=== PATIENT | male | born 1965 | race American Indian/Alaskan Native ===

== ENCOUNTER 2020-04-08 18:35 | Observation (INO) | payer OTHER ==
--- NOTE | 2020-04-08 18:57 | Emergency Department Report ---
ED Neuro Deficit HPI - General Stated Complaint: STROKE - History of Present Illness Initial Comments: [facility] Tele[facility]rology Consult [facility] Date of Service: 04/08/2020 18:28:48 Impression: R42 - Dizziness/ Vertigo/ Giddiness R29.810 - Facial numbness/ Facial weakness Comments/Sign-Out: acute onset dizziness/vertigo - concerning for brainstem/cerebellar infarct vs peripheral vertigo. Recommend admission for stroke workup. Metrics: Last Known Well: 04/07/2020 13:00:00 [employer] Notification Time: 04/08/2020 18:28:24 Arrival Time: 04/08/2020 18:35:00 Stamp Time: 04/08/2020 18:28:48 Time First Login Attempt: 04/08/2020 18:36:04 Video Start Time: 04/08/2020 18:36:04 Symptoms: dizziness; slurred speech. NIHSS Start Assessment Time: 04/08/2020 18:45:00 Patient is not a candidate for Alteplase/Activase. Patient was not deemed candidate for Alteplase/Activase thrombolytics because of Last Well Known Above 4.5 Hours. Video End Time: 04/08/2020 18:54:36 CT head showed no acute hemorrhage or acute core infarct. CT head was reviewed. ED Physician notified of diagnostic impression and management plan on 04/08/2020 18:54:36 Our recommendations are outlined below. Recommendations: Activate Stroke Protocol Admission/Order Set Stroke/Telemetry Floor Neuro Checks Bedside Swallow Eval DVT Prophylaxis IV Fluids, Normal Saline Head of Bed 30 Degrees Euglycemia and Avoid Hyperthermia (PRN Acetaminophen) start ASA if CT head is neg for hemorrhage. Routine Consultation with Inhouse Neurology for Follow up Care Sign Out: Discussed with Emergency Department Provider History of Present Illness: Patient is a 54 year old Male. Patient was brought by EMS for symptoms of dizziness; slurred speech. 54 yo man was home with his family that had acute onset dizziness starting at approx 1300 yesterday. He had a spell of unresponsiveness while sitting in a chair, which was accompanied by generalized convulsion. His family helped him to the ground, and he regained consciousness. He developed slurred speech, and family noted right facial droop. Past Medical History: Hypertension Diabetes Mellitus There is NO history of Hyperlipidemia There is NO history of Atrial Fibrillation There is NO history of Coronary Artery Disease There is NO history of Stroke Anticoagulant use: No Antiplatelet use: No Examination: BP(174/96), Pulse(94), Blood Glucose(240) 1A: Level of Consciousness - Alert; keenly responsive + 0 1B: Ask Month and Age - 1 Question Right + 1 1C: Blink Eyes & Squeeze Hands - Performs Both Tasks + 0 2: Test Horizontal Extraocular Movements - Normal + 0 3: Test Visual Aparicio - No Visual Loss + 0 4: Test Facial Palsy (Use Grimace if Obtunded) - Minor paralysis (flat nasolabial fold, smile asymmetry) + 1 5A: Test Left Arm Motor Drift - No Drift for 10 Seconds + 0 5B: Test Right Arm Motor Drift - No Drift for 10 Seconds + 0 6A: Test Left Leg Motor Drift - No Drift for 5 Seconds + 0 6B: Test Right Leg Motor Drift - No Drift for 5 Seconds + 0 7: Test Limb Ataxia (FNF/Heel-Castañeda) - No Ataxia + 0 8: Test Sensation - Normal; No sensory loss + 0 9: Test Language/Aphasia - Normal; No aphasia + 0 10: Test Dysarthria - Normal + 0 11: Test Extinction/Inattention - No abnormality + 0 NIHSS Score: 2 Pre-Morbid Modified Ranking Scale: 0 Points = No symptoms at all Patient/Family was informed the Neurology Consult would happen via TeleHealth consult by way of interactive audio and video telecommunications and consented to receiving care in this manner. Due to the immediate potential for life-threatening deterioration due to underlying acute neurologic illness, I spent 20 minutes providing critical care. This time includes time for face to face visit via telemedicine, review of medical records, imaging studies and discussion of findings with providers, the patient and/or family. Dr Duy Ackerman [facility] Case [id number] - Related Data Allergies/Adverse Reactions: Allergies Allergy/AdvReac Type Severity Reaction Status Date / Time No Known Allergies Allergy Unverified 04/08/20 18:37 ED Review of Systems ROS: Stated complaint: STROKE Other details as noted in HPI ED Neuro Physical Exam - General Suspected Stroke: Yes - NIHSS Assessment Interval: Baseline 1a. Level of Consciousness: alert/keenly responsive 1b. LOC Questions: answers both correctly 1c. LOC Commands: performs tasks correctly 2. Best Gaze: normal 3. Visual: no visual loss 4. Facial Palsy: minor paralysis 5b. Motor Arm Right: no drift 5a. Motor Arm Left: no drift 6a. Motor Leg Left: no drift 6b. Motor Leg Right: no drift 7. Limb Ataxia: absent 8. Sensory: normal 9. Best Language: no aphasia 10. Dysarthria: normal 11. Extinction/Inattention: no abnormality Total Score: 1 Stroke Severity: Minor Stroke Critical care attestation.: If time is entered above; I have spent that time in minutes in the direct care of this critically ill patient, excluding procedure time. ED Disposition Clinical Impression: Dizziness Disposition: DC-09 OP ADMIT IP TO THIS HOSP Is pt being admited?: Yes Condition: Stable
--- NOTE | 2020-04-08 19:02 | Emergency Department Report ---
ED Neuro Deficit HPI - General Stated Complaint: STROKE Time Seen by Provider: 04/08/20 18:55 - History of Present Illness Initial Comments: Patient is a 54-year-old Af [place]ian male who is presenting with some facial droop and difficulty speaking. Patient has a past medical history of diabetes and hypertension patient originally stated that he was fine for taking a nap approximately hour prior to his arrival but in speaking with the neurologist recreation aide he now states that some of his symptoms started yesterday. Patient states that his left arm feels "weird". States he has normal strength but he just has a numb sensation in that arm. He has some slight facial droop on the right. Definitely states he is not speaking normally at this time. He denies any chest pain shortness of breath fevers chills. - Related Data Allergies/Adverse Reactions: Allergies Allergy/AdvReac Type Severity Reaction Status Date / Time No Known Allergies Allergy Unverified 04/08/20 18:37 ED Review of Systems ROS: Stated complaint: STROKE Other details as noted in HPI Comment: All other systems reviewed and negative ED Neuro Physical Exam - General General appearance: alert, in no apparent distress Suspected Stroke: Yes - Head Head exam: Present: atraumatic, normocephalic - Eye Eye exam: Present: normal appearance, PERRL, EOMI - ENT ENT exam: Present: normal orophraynx, mucous membranes moist - Neck Neck exam: Present: normal inspection - Respiratory Respiratory exam: Present: normal lung sounds bilaterally. Absent: respiratory distress, wheezes, rales, rhonchi - Cardiovascular Cardiovascular Exam: Present: regular rate, normal rhythm, normal heart sounds. Absent: systolic murmur, diastolic murmur, rubs, gallop - GI/Abdominal GI/Abdominal exam: Present: soft, normal bowel sounds. Absent: distended, tenderness, guarding, rebound - Rectal Rectal exam: Present: deferred - Extremities Exam Extremities exam: Present: normal inspection - Back Exam Back exam: Present: normal inspection - Neurological Exam Neurological exam: Present: alert, oriented X3, motor sensory deficit. Absent: CN II-XII intact - NIHSS Assessment Interval: Baseline 1a. Level of Consciousness: alert/keenly responsive 1b. LOC Questions: answers both correctly 1c. LOC Commands: performs tasks correctly 2. Best Gaze: normal 3. Visual: no visual loss 4. Facial Palsy: minor paralysis 5b. Motor Arm Right: no drift 5a. Motor Arm Left: no drift 6a. Motor Leg Left: no drift 6b. Motor Leg Right: no drift 7. Limb Ataxia: absent 8. Sensory: mild/moderate sensory loss 9. Best Language: mild/moderate aphasia 10. Dysarthria: mild/moderate dysarthria 11. Extinction/Inattention: no abnormality Total Score: 4 Stroke Severity: Minor Stroke - Psychiatric Psychiatric exam: Present: normal affect, normal mood - Skin Skin exam: Present: warm, dry, intact, normal color. Absent: rash ED Course Vital Signs 04/08/20 18:49 Temperature 98 F Pulse Rate 74 Respiratory 20 Rate Blood Pressure 174/90 O2 Sat by Pulse 97 Oximetry - Lab Data Result diagrams: 04/08/20 18:48 04/08/20 18:48 Lab Results 04/08/20 04/08/20 04/08/20 Range/Units 18:48 18:48 18:48 WBC 7.4 (4.5-11.0) K/mm3 RBC 3.90 (3.65-5.03) M/mm3 Hgb 11.6 L (11.8-15.2) gm/dl Hct 35.5 (35.5-45.6) % MCV 91 (84-94) fl MCH 30 (28-32) pg MCHC 33 (32-34) % RDW 12.9 L (13.2-15.2) % Plt Count 217 (140-440) K/mm3 Lymph % (Auto) 21.3 (13.4-35.0) % [place] % (Auto) 6.2 (0.0-7.3) % Eos % (Auto) 1.2 (0.0-4.3) % Baso % (Auto) 0.8 (0.0-1.8) % Lymph # (Auto) 1.6 (1.2-5.4) K/mm3 [place] # (Auto) 0.5 (0.0-0.8) K/mm3 Eos # (Auto) 0.1 (0.0-0.4) K/mm3 Baso # (Auto) 0.1 (0.0-0.1) K/mm3 Seg Neutrophils % 70.5 H (40.0-70.0) % Seg Neutrophils # 5.2 (1.8-7.7) K/mm3 PT 13.5 (12.2-14.9) Sec. INR 1.04 (0.87-1.13) APTT 23.2 L (24.2-36.6) Sec. Thrombin Time (15.1-19.6) Sec. Sodium 133 L (137-145) mmol/L Potassium 4.4 (3.6-5.0) mmol/L Chloride 100.2 (98-107) mmol/L Carbon Dioxide 19 L (22-30) mmol/L Anion Gap 18 mmol/L BUN 33 H (9-20) mg/dL Creatinine 2.1 H (0.8-1.3) mg/dL Estimated GFR 40 ml/min BUN/Creatinine Ratio 16 % Glucose 198 H (75-100) mg/dL POC Glucose (70-105) mg/dL Calcium 8.8 (8.4-10.2) mg/dL Troponin T < 0.010 (0.00-0.029) ng/mL Plasma/Serum Alcohol (0-0.07) % 04/08/20 04/08/20 04/08/20 Range/Units 18:48 19:12 19:44 WBC (4.5-11.0) K/mm3 RBC (3.65-5.03) M/mm3 Hgb (11.8-15.2) gm/dl Hct (35.5-45.6) % MCV (84-94) fl MCH (28-32) pg MCHC (32-34) % RDW (13.2-15.2) % Plt Count (140-440) K/mm3 Lymph % (Auto) (13.4-35.0) % [place] % (Auto) (0.0-7.3) % Eos % (Auto) (0.0-4.3) % Baso % (Auto) (0.0-1.8) % Lymph # (Auto) (1.2-5.4) K/mm3 [place] # (Auto) (0.0-0.8) K/mm3 Eos # (Auto) (0.0-0.4) K/mm3 Baso # (Auto) (0.0-0.1) K/mm3 Seg Neutrophils % (40.0-70.0) % Seg Neutrophils # (1.8-7.7) K/mm3 PT (12.2-14.9) Sec. INR (0.87-1.13) APTT (24.2-36.6) Sec. Thrombin Time 15.3 (15.1-19.6) Sec. Sodium (137-145) mmol/L Potassium (3.6-5.0) mmol/L Chloride (98-107) mmol/L Carbon Dioxide (22-30) mmol/L Anion Gap mmol/L BUN (9-20) mg/dL Creatinine (0.8-1.3) mg/dL Estimated GFR ml/min BUN/Creatinine Ratio % Glucose (75-100) mg/dL POC Glucose 155 H (70-105) mg/dL Calcium (8.4-10.2) mg/dL Troponin T (0.00-0.029) ng/mL Plasma/Serum Alcohol < 0.01 (0-0.07) % - Radiology Data [facility] [address] [place] [address] Cat Scan Report Signed Patient: SHEBA MÉNDEZ MR#: [id number] : 1965 Acct:[id number] Age/Sex: 54 / M ADM Date: 04/08/20 Loc: ED Attending Dr: Ordering Physician: THOR SHARMA MD Date of Service: 04/08/20 Procedure(s): CT head/brain wo con Accession Number(s): [id number] cc: THOR SHARMA MD NONENHANCED CT SCAN OF THE HEAD: INDICATION / CLINICAL INFORMATION: 54 years Male; MAIN. TECHNIQUE: Routine CT head without contrast. All CT scans at this location are performed using CT dose reduction for ALARA by means of automated exposure control. COMPARISON: None. FINDINGS: BRAIN / INTRACRANIAL CONTENTS: No acute hemorrhage, mass effect, midline shift, hydrocephalus, or acute, large territorial infarct. Increased CT attenuation in the left caudate head and globus pallidus; right caudate head and thalami normal; Compared to the right side, increased CT attenuation in the left middle cerebral artery territory. It is difficult to explain these findings. 2 considerations are acute infarction in left basal ganglia with petechial changes and second consideration is loss of autoregulation resulting in increased attenuation in the left basal ganglia and left middle cerebral artery territory. Focal area of increased CT attenuation in one of the pericallosal arteries; middle cerebral arteries and branches of the middle cerebral artery in the sylvian fissure are normal mild cortical involution CRANIOCERVICAL JUNCTION: No significant abnormality. ORBITS: No significant abnormality of visualized orbits. SINUSES / MASTOIDS: No significant abnormality of the visualized paranasal sinuses or mastoid air cells. ADDITIONAL FINDINGS: None. IMPRESSION: No intracerebral hemorrhage Increased CT attenuation in the head of the left caudate and left globus pallidus along with suggestion of increased CT attenuation in the left middle cerebral artery territory compared to the right side; no CT findings to suggest acute territorial infarction; 2 considerations are acute infarction in the left basal ganglia with petechial changes and a second consideration is loss of autoregulation resulting in increased CT attenuation in the left basal ganglia and left middle cerebral artery territory Please obtain MRI scan of the brain and MRA of the brain CODE STROKE: Time of Communication (AIRFIELD SERVICES OFFICER/CDT): 6:15 PM Central standard time Licensed Practitioner Receiving Report: ER Physician Signer Name: Gladis García MD Signed: 04/08/2020 7:26 PM Workstation Name: [id number] - Medical Decision Making Our neurologists had a NIH score of 1. My assessment just 5 minutes after his assessment shows a NIH H score of 4. Patient has very subtle dysphagia aphasia. Patient is outside of the window for TPA and both our neurologist and radiologist suggest that the patient obtain MRI for further details. He does have some hyperattenuation in the left basal ganglia. Patient to be admitted to our hospitalist service at this time. Was given aspirin. Critical care attestation.: If time is entered above; I have spent that time in minutes in the direct care of this critically ill patient, excluding procedure time. ED Disposition Clinical Impression: Dizziness, CVA (cerebral vascular accident), Hypertensive urgency, malignant, Renal insufficiency Disposition: OP ADMIT IP TO THIS HOSP Is pt being admited?: Yes Does the pt Need Aspirin: No Condition: Stable Time of Disposition: 19:49
[2020-04-08 19:05] LABS: Basophils # (Auto) 0.1 K/mm3 (0.0-0.1); Basophils % (Auto) 0.8 % (0.0-1.8); Eosinophils # (Auto) 0.1 K/mm3 (0.0-0.4); Eosinophils % (Auto) 1.2 % (0.0-4.3); Hematocrit 35.5 % (35.5-45.6); Hemoglobin 11.6 gm/dl (11.8-15.2); Lymphocytes # (Auto) 1.6 K/mm3 (1.2-5.4); Lymphocytes % (Auto) 21.3 % (13.4-35.0); Mean Corpuscular HGB Conc 33 % (32-34); Mean Corpuscular Volume 91 fl (84-94); Monocytes # (Auto) 0.5 K/mm3 (0.0-0.8); Monocytes % (Auto) 6.2 % (0.0-7.3); Platelet Count 217 K/mm3 (140-440); Red Cell Distribution Width 12.9 % (13.2-15.2)
[2020-04-08 19:18] LABS: BUN/Creatinine Ratio 16; Blood Urea Nitrogen 33 mg/dL (9-20); Calcium 8.8 mg/dL (8.4-10.2); Hemolysis Index 21; INR 1.04 (0.87-1.13); Partial Thromboplastin Time 23.2 Sec. (24.2-36.6)
--- NOTE | 2020-04-08 19:31 | Cat Scan Report ---
NONENHANCED CT SCAN OF THE HEAD: INDICATION / CLINICAL INFORMATION: 54 years Male; MAIN. TECHNIQUE: Routine CT head without contrast. All CT scans at this location are performed using CT dos e reduction for ALARA by means of automated exposure control. COMPARISON: None. FINDINGS: BRAIN / INTRACRANIAL CONTENTS: No acute hemorrhage, mass effect, midline shift, hydrocephalus, or acu te, large territorial infarct. Increased CT attenuation in the left caudate head and globus pallidus; right caudate head and thala mi normal; Compared to the right side, increased CT attenuation in the left middle cerebral artery te rritory. It is difficult to explain these findings. 2 considerations are acute infarction in left bas al ganglia with petechial changes and second consideration is loss of autoregulation resulting in in creased attenuation in the left basal ganglia and left middle cerebral artery territory. Focal area of increased CT attenuation in one of the pericallosal arteries; middle cerebral arteries and branches of the middle cerebral artery in the sylvian fissure are normal mild cortical involution CRANIOCERVICAL JUNCTION: No significant abnormality. ORBITS: No significant abnormality of visualized orbits. SINUSES / MASTOIDS: No significant abnormality of the visualized paranasal sinuses or mastoid air indira ls. ADDITIONAL FINDINGS: None. IMPRESSION: No intracerebral hemorrhage Increased CT attenuation in the head of the left caudate and left globus pallidus along with suggest ion of increased CT attenuation in the left middle cerebral artery territory compared to the right s chris; no CT findings to suggest acute territorial infarction; 2 considerations are acute infarction in the left basal ganglia with petechial changes and a second consideration is loss of autoregulation r esulting in increased CT attenuation in the left basal ganglia and left middle cerebral artery territ ory Please obtain MRI scan of the brain and MRA of the brain CODE STROKE: Time of Communication (TOOL TURRET LATHE SET UP OPERATOR/CDT): 6:15 PM Central standard time Licensed Practitioner Receiving Report: ER Physician Signer Name: Gladis García MD Signed: 04/08/2020 7:26 PM Workstation Name: [id number]
[2020-04-08] MEDS ORDERED: METOPROLOL TARTRATE 50 MG TAB PO ONE (19:46)
[2020-04-08] MEDS ORDERED: ASPIRIN 325 MG TAB PO ONE (19:46)
[2020-04-08 20:09] LABS: Amphetamine Screen,Urine Negative; Benzodiazepines Screen,Urine Negative; Cannabinoid Screen,Urine Negative; Cocaine Screen,Urine Negative; Methadone Screen,Urine Negative; Opiate Screen,Urine Negative
[2020-04-09] MEDS ORDERED: DEXTROSE 50% IN WATER (25GM) 50 ML SYRINGE IV PRN (03:03)
[2020-04-09] MEDS ORDERED: SODIUM CHLORIDE 0.9% 1000 ML 1,000 ML IV SCH (03:15)
[2020-04-09] MEDS: INSULIN REGULAR, HUMAN 100 UNIT/ML 3ML VIAL SUB-Q SCH ×4 (06:36→21:38)
[2020-04-09 06:37] LABS: Calcium 8.5 mg/dL (8.4-10.2)
--- NOTE | 2020-04-09 08:01 | History and Physical Report ---
History of Present Illness Date of examination: 03/10/20 Date of admission: 04/08/20 22:18 Chief complaint: fACIAL DROOP, SPEECH IMPAIRMENT AND LEFT ARM NUMBNESS History of present illness: 54 year old male who developed symptom of droopin of right side of mouth, speech impairment and numbness of the left arm. Symptoms started the day before presentation . patient denied history of pain in any part of the body , shortness of breath and or fever, there is no history of nausea or vomiting and patient described the left arm feeling as heavy and weird. Past History Past Medical History: diabetes, hypertension Past Surgical History: No surgical history Social history: no significant social history Medications and Allergies Allergies Allergy/AdvReac Type Severity Reaction Status Date / Time No Known Allergies Allergy Verified 04/09/20 03:04 Active Meds: Active Medications Dextrose (D50w (25gm) Syringe) 50 ml IV Q30MIN PRN; Protocol PRN Reason: Hypoglycemia Sodium Chloride (Nacl 0.9% 1000 Ml) 1,000 mls @ 100 mls/hr IV DIRECT JAMEY Last Admin: 04/09/20 04:00 Dose: 100 mls/hr Documented by: Insulin Human Regular (Humulin R) 0 unit SUB-Q Q4HR JAMEY; Protocol Last Admin: 04/09/20 06:36 Dose: Not Given Documented by: Review of Systems Constitutional: no fever, no chills, no sweats, no fatigue, no weakness Eyes: bilateral: other (No Bilateral Eye symptom) Ears, nose, mouth and throat: no ear pain Cardiovascular: no chest pain, no orthopnea, no palpitations, no rapid/irregular heart beat, no syncope, no lightheadedness, no shortness of breath Respiratory: no cough, no excessive sputum, no hemoptysis, no shortness of breath, no dyspnea on exertion Gastrointestinal: no nausea, no vomiting Genitourinary Male: no hematuria Rectal: no pain Musculoskeletal: arm numbness/tingling, other (LEFT ARM HEAVYNESS), no neck stiffness, no neck pain, no shooting arm pain, no low back pain, no shooting leg pain, no leg numbness/tingling Integumentary: no rash, no pruritis, no redness, no sores, no wounds Neurological: numbness, change in speech, no head injury, no paralysis, no weakness, no parathesias, no tingling, no seizures, no syncope, no tremors, no ataxia, no lack of coordination, no vertigo, no headaches, no convulsions, no aphasia, no change in mentation, no confusion, no memory loss Psychiatric: no anxiety, no insomnia Endocrine: no polyphagia, no polydipsia, no polyuria, no nocturia, no excessive sweating Hematologic/Lymphatic: no easy bruising, no easy bleeding, no lymphadenopathy Allergic/Immunologic: no urticaria Exam - Constitutional Vitals: Temp Pulse Resp BP Pulse Ox 98.4 F 65 20 153/83 99 04/09/20 02:55 04/09/20 04:00 04/09/20 02:55 04/09/20 02:55 04/09/20 02:55 General appearance: Present: mild distress - EENT Eyes: Absent: PERRL, EOM intact ENT: no hearing intact, no clear oral mucosa, no dentition normal - Neck Neck: Absent: supple, normal ROM - Respiratory Respiratory effort: normal - Cardiovascular Heart Sounds: Present: S1 & S2. Absent: gallop, systolic murmur, rub, click - Extremities Extremities: no ischemia, No edema Peripheral Pulses: within normal limits - Abdominal General gastrointestinal: Present: soft, non-tender, non-distended. Absent: tender, distended, rigid, hepatomegaly, splenomegaly Male genitourinary: Present: deferred - Rectal Rectal Exam: deferred - Integumentary Integumentary: Present: clear, warm, dry. Absent: jaundice - Musculoskeletal Musculoskeletal: strength equal bilaterally - Psychiatric Psychiatric: appropriate mood/affect HEART Score - HEART Score Risk factors: 1-2 risk factors Troponin: Troponin T < 0.010 ng/mL (0.00-0.029) 04/08/20 18:48 Troponin: < normal limit - Critical Actions Critical Actions: 0-3 pts:0.9-1.7%risk of adverse cardiac event.Candidate for discharge Results - Labs CBC & Chem 7: 04/08/20 18:48 04/09/20 05:14 Labs: Laboratory Last Values WBC 7.4 K/mm3 (4.5-11.0) 04/08/20 18:48 RBC 3.90 M/mm3 (3.65-5.03) 04/08/20 18:48 Hgb 11.6 gm/dl (11.8-15.2) L 04/08/20 18:48 Hct 35.5 % (35.5-45.6) 04/08/20 18:48 MCV 91 fl (84-94) 04/08/20 18:48 MCH 30 pg (28-32) 04/08/20 18:48 MCHC 33 % (32-34) 04/08/20 18:48 RDW 12.9 % (13.2-15.2) L 04/08/20 18:48 Plt Count 217 K/mm3 (140-440) 04/08/20 18:48 Lymph % (Auto) 21.3 % (13.4-35.0) 04/08/20 18:48 [place] % (Auto) 6.2 % (0.0-7.3) 04/08/20 18:48 Eos % (Auto) 1.2 % (0.0-4.3) 04/08/20 18:48 Baso % (Auto) 0.8 % (0.0-1.8) 04/08/20 18:48 Lymph # (Auto) 1.6 K/mm3 (1.2-5.4) 04/08/20 18:48 [place] # (Auto) 0.5 K/mm3 (0.0-0.8) 04/08/20 18:48 Eos # (Auto) 0.1 K/mm3 (0.0-0.4) 04/08/20 18:48 Baso # (Auto) 0.1 K/mm3 (0.0-0.1) 04/08/20 18:48 Seg Neutrophils % 70.5 % (40.0-70.0) H 04/08/20 18:48 Seg Neutrophils # 5.2 K/mm3 (1.8-7.7) 04/08/20 18:48 PT 13.5 Sec. (12.2-14.9) 04/08/20 18:48 INR 1.04 (0.87-1.13) 04/08/20 18:48 APTT 23.2 Sec. (24.2-36.6) L 04/08/20 18:48 Thrombin Time 15.3 Sec. (15.1-19.6) 04/08/20 18:48 Sodium 133 mmol/L (137-145) L 04/09/20 05:14 Potassium 4.4 mmol/L (3.6-5.0) 04/09/20 05:14 Chloride 100.9 mmol/L (98-107) 04/09/20 05:14 Carbon Dioxide 22 mmol/L (22-30) 04/09/20 05:14 Anion Gap 15 mmol/L 04/09/20 05:14 BUN 29 mg/dL (9-20) H 04/09/20 05:14 Creatinine 1.7 mg/dL (0.8-1.3) H 04/09/20 05:14 Estimated GFR 51 ml/min 04/09/20 05:14 BUN/Creatinine Ratio 17 % 04/09/20 05:14 Glucose 256 mg/dL (75-100) H 04/09/20 05:14 POC Glucose 249 mg/dL (70-105) H 04/09/20 07:50 Calcium 8.5 mg/dL (8.4-10.2) 04/09/20 05:14 Troponin T < 0.010 ng/mL (0.00-0.029) 04/08/20 18:48 Urine Opiates Screen Negative 04/08/20 19:55 Urine Methadone Screen Negative 04/08/20 19:55 Ur Barbiturates Screen Negative 04/08/20 19:55 Ur Phencyclidine Scrn Negative 04/08/20 19:55 Ur Amphetamines Screen Negative 04/08/20 19:55 U Benzodiazepines Scrn Negative 04/08/20 19:55 Urine Cocaine Screen Negative 04/08/20 19:55 U Marijuana (THC) Screen Negative 04/08/20 19:55 Drugs of Abuse Note Disclamer 04/08/20 19:55 Plasma/Serum Alcohol < 0.01 % (0-0.07) 04/08/20 19:12 Galvin/IV: Voiding Method Toilet IV Catheter Type [Right Peripheral IV Antecubital] Assessment and Plan - Patient Problems (1) Diabetes mellitus Current Visit: Yes Status: Acute Plan to address problem: 1. ACCU CHECKS AND INSULIN SLIDING SCALE COVERAGE (2) CVA (cerebral vascular accident) Current Visit: Yes Status: Acute Plan to address problem: 1. NEUROLOGY CONSULT FOR EVALUATION AND POSSIBLE MRI BRAIN 2. 2 D ECHOCARDIOGRAM 3. BILATERAL CAROTID DOPPLER 4. NPO UNTIL SWALLOW TEST PASSED 5. PHYSICAL THERAPY CONSULT 6. SPEECH THERAPY CONSULT 7. ASPIRIN PO 8. ATORVASTATIN PO (3) Renal insufficiency Current Visit: Yes Status: Acute Plan to address problem: 1. I.V NORMAL SALINE FLUID 2. NEPHROLOGY CONSULT
[2020-04-09] MEDS ORDERED: hydroCHLOROthiazide 12.5 MG CAP PO SCH (11:00)
--- NOTE | 2020-04-09 11:04 | Discharge Summary ---
Providers - Providers Date of Admission: 04/08/20 22:18 Attending physician: JEF JOVEL MD 04/08/20 23:31 Physical Therapy Evaluation and Treat [CONS] Routine Comment: Reason For Exam: CVA 04/09/20 06:00 Consult to Physician [CONS] Routine Comment: Consulting Provider: EZEQUIEL PHILLIPS Physician Instructions: Reason For Exam: NALDO Speech Therapy Evaluation and Treat [CONS] Routine Reason For Exam: CVA WITH SPEECH IMPAIRMENT 04/09/20 06:27 Consult to Physician [CONS] Routine Comment: Consulting Provider: SVETLANA HASTINGS Physician Instructions: Reason For Exam: CVA [facility] Hospital[facility] Condition: Stable Hospital course: Clinically improved, lower ext discoloration secondary to mahoney well healed Facial droop resolved Was not on aspirin at home CT negative Disposition: DC-01 TO HOME OR SELFCARE Time spent for discharge: 35 mins Core Measure Documentation - Palliative Care Palliative Care/ Comfort Measures: Not Applicable Exam - Constitutional Vitals: Temp Pulse Resp BP Pulse Ox 98.6 F 63 20 159/91 96 04/09/20 07:52 04/09/20 07:52 04/09/20 07:52 04/09/20 07:52 04/09/20 07:52 Plan Activity: advance as tolerated, fall precautions Diet: low fat Special Instructions: record daily weights, record daily BP diary, physical therapy, occupational therapy [facility] - [facility] Days Prescriptions: AtorvaSTATin [Lipitor] 40 mg PO QHS #30 tablet amLODIPine 2.5 mg PO QDAY #30 tablet Aspirin [Aspirin BABY CHEW TAB] 81 mg PO QDAY #30 tab.chew
--- NOTE | 2020-04-09 11:11 | Consultation ---
History of Present Illness - Reason for Consult Consult date: 04/09/20 acute renal failure - History of Present Illness 54 year old male was admitted for left sided weakness. had some SOB on admission and generalized pain, was noted to have abnormal creatinine and renal consult was requested, he was started on IVF on admission. when seen he stated he is feeling much better and requesting to go home Past History Past Medical History: diabetes, hypertension Past Surgical History: No surgical history Social history: no significant social history Medications and Allergies Allergies Allergy/AdvReac Type Severity Reaction Status Date / Time No Known Allergies Allergy Verified 04/09/20 03:04 Home Medications Medication Instructions Recorded Confirmed Last Taken Type Aspirin [Aspirin BABY CHEW TAB] 81 mg PO QDAY #30 tab.chew 04/09/20 Unknown Rx AtorvaSTATin [Lipitor] 40 mg PO QHS #30 tablet 04/09/20 Unknown Rx amLODIPine 2.5 mg PO QDAY #30 tablet 04/09/20 Unknown Rx Active Meds: Active Medications Amlodipine Besylate (Amlodipine) 2.5 mg PO QDAY JAMEY Aspirin (Baby Aspirin) 81 mg PO QDAY JAMEY Atorvastatin Calcium (Lipitor) 80 mg PO QHS JAMEY Dextrose (D50w (25gm) Syringe) 50 ml IV Q30MIN PRN; Protocol PRN Reason: Hypoglycemia Sodium Chloride (Nacl 0.9% 1000 Ml) 1,000 mls @ 75 mls/hr IV DIRECT JAMEY Insulin Human Regular (Humulin R) 0 unit SUB-Q Q4HR [facility]; Protocol Last Admin: 04/09/20 06:36 Dose: Not Given Documented by: Review of Systems All systems: negative (weakness) Exam - Vital Signs Vital signs: Vital Signs Temp Pulse Resp BP Pulse Ox 98 F 74 20 174/90 97 04/08/20 18:49 04/08/20 18:49 04/08/20 18:49 04/08/20 18:49 04/08/20 18:49 - General Appearance General appearance: well-developed, well-nourished, appears stated age EENT: ATNC, PERRL, mucous membranes moist Neck: Present: neck supple Respiratory: Clear to Ascultation Heart: regular, S1S2 Gastrointestinal: Present: normoactive bowel sounds. Absent: tenderness, distended Integumentary: no rash, warm and dry Neurologic: no focal deficit, no asterixis, alert and oriented x3 Musculoskeletal: Present: other (no edema in BLE) Psychiatric: mood/affect appropriate, cooperative Results - Lab Results 04/08/20 18:48 04/09/20 05:14 Most recent lab results Calcium 8.5 mg/dL (8.4-10.2) 04/09/20 05:14 Assessment and Plan acute renal failure, likely prerenal, no baseline creatinine available CVA HTN D DM type II creatinine is trending down with IVF will [facility] urine studies will check renal US renally dose meds strict I&O daily weights Harmeet daigle MD [phone]
--- NOTE | 2020-04-09 12:07 | Vascular Lab Report ---
BILATERAL CAROTID DOPPLER ULTRASOUND INDICATION : CVA TECHNIQUE: Grayscale and color Doppler imaging performed through the neck. COMPARISON: None FINDINGS: Right: There is minimal noncalcified plaque in the carotid bulb. Peak systolic velocity in the CCA is 68 cm/s with end-diastolic velocity of 20 cm/s. Peak systolic velocity in the proximal ICA is 83 c m/s with end-diastolic velocity of 26 cm/s. ICA to CCA ratio is less than 2. There is antegrade flow in the ECA and the vertebral artery. Left: There is minimal noncalcified plaque in the carotid bulb. Peak systolic velocity in the CCA is 91 cm/s with end-diastolic velocity of 21 cm/s. Peak systolic velocity in the proximal ICA is 107 cm/ s with end-diastolic velocity of 27 cm/s. ICA to CCA ratio is less than 2. There is antegrade flow i n the ECA and the vertebral artery. IMPRESSION: No hemodynamically significant stenosis by NASCET criteria. Doppler velocities indicate l ess than 50% luminal narrowing bilaterally. Signer Name: Souleymane Shahid Jr, MD Signed: 04/09/2020 12:02 PM Workstation Name: [id number]
--- NOTE | 2020-04-09 12:39 | Ultrasound Report ---
ULTRASOUND RENAL INDICATION / CLINICAL INFORMATION: renal failure. COMPARISON: None FINDINGS: RIGHT KIDNEY: Size: 10.3 cm - Echogenicity: Normal. - Cortical Thickness: Normal. - Hydronephrosis: None. - Cyst or mass: No significant abnormality. - Stones: None seen. LEFT KIDNEY: Size: 2.5 cm - Echogenicity: Normal. - Cortical Thickness: Normal. - Hydronephrosis: None. - Cyst or mass: No significant abnormality. - Stones: None seen. URINARY BLADDER: No significant abnormality. FREE FLUID: None. ADDITIONAL FINDINGS: None. IMPRESSION: Unremarkable sonographic evaluation of the kidneys. Signer Name: Scar Piedra MD Signed: 04/09/2020 12:35 PM Workstation Name: [id number]
--- NOTE | 2020-04-09 13:20 | Magnetic Resonance Report ---
MRI BRAIN 04/09/2020 INDICATION / CLINICAL INFORMATION: cva. TECHNIQUE: Multiplanar, multisequence MR images of the brain were obtained. COMPARISON: None available. FINDINGS: BRAIN / INTRACRANIAL CONTENTS: Unenhanced MR images of the brain demonstrate no evidence of acute int racranial abnormality. Ventricles and sulci are normal in size and shape. There is no evidence of acute ischemic injury, hemorrhage, or mass. There are no abnormal extra-axial fluid collections. Chronic white matter T2 weighted hyperintensities are present in the periventricular and deep white m atter of cerebral hemispheres. There is evidence of old lacunar changes in the left putamen. EXTRACRANIAL: Unremarkable CRANIOCERVICAL JUNCTION: No significant abnormality. VASCULAR FLOW-VOIDS: No significant abnormality. IMPRESSION: No acute abnormality. Signer Name: Trever Nicholas MD Signed: 04/09/2020 1:15 PM Workstation Name: [id number]
--- NOTE | 2020-04-09 14:40 | Magnetic Resonance Report ---
MRA HEAD WITHOUT CONTRAST HISTORY: Cerebrovascular accident. COMPARISON: none TECHNIQUE: Routine MRA of the head performed. 3-D/MIP reformats postprocessed. CONTRAST: none FINDINGS: MRA HEAD: OVERVIEW: There is no evidence of hemodynamically significant intracranial stenosis or large vessel o cclusion. There is no evidence of aneurysm or other vascular malformation. Intracranial vertebral arteries: Normal and symmetrical vertebral arteries both contribute to the bas ilar artery origin. Basilar artery: Basilar artery has an unremarkable appearance. Posterior cerebral arteries: origin of the left posterior cerebral artery is noted. This is acc ompanied by hypoplasia of the P1 segment of the left posterior cerebral artery. Otherwise normal and symmetrical appearing posterior cerebral arteries are demonstrated. Intracranial internal carotid arteries: No significant abnormality. Anterior cerebral arteries: Mild asymmetry of the A1 segments of the anterior cerebral arteries is ob served, right larger than left. This is a developmental variation. No abnormalities are seen along th e course of the A2 segments or visualized pericallosal branches. Middle cerebral arteries: Normal and symmetrical M1 segments are demonstrated bilaterally. No abnorma lities are seen on evaluation of the insular or opercular branches of the middle cerebral arteries. IMPRESSION: 1. No significant abnormalities are identified on MRA head. Signer Name: Narciso Solis MD Signed: 04/09/2020 2:35 PM Workstation Name: [id number]
--- NOTE | 2020-04-09 14:54 | Consultation ---
History of Present Illness Consult date: 04/09/20 Reason for Consult: CVA Chief complaint: Cheif Complaint: Right Upper and Lower Extremity Numbness - 1 day 54 year old with DM , HTN comes in with 1 day history of Right Upper and Lower Extremity Numbness now resolved . Reports no Headache now , there is no weakness in the upper and lower extremity , no vision issues, no chest pain . During this Hospitalization patient reports full recovery. Past History Past Medical History: diabetes, hypertension Past Surgical History: No surgical history Social history: no significant social history Medications and Allergies Allergies Allergy/AdvReac Type Severity Reaction Status Date / Time No Known Allergies Allergy Verified 04/09/20 03:04 Home Medications Medication Instructions Recorded Confirmed Last Taken Type Aspirin [Aspirin BABY CHEW TAB] 81 mg PO QDAY #30 tab.chew 04/09/20 Unknown Rx AtorvaSTATin [Lipitor] 40 mg PO QHS #30 tablet 04/09/20 Unknown Rx amLODIPine 2.5 mg PO QDAY #30 tablet 04/09/20 Unknown Rx Active Meds: Active Medications Amlodipine Besylate (Amlodipine) 2.5 mg PO QDAY JAMEY Aspirin (Baby Aspirin) 81 mg PO QDAY JAMEY Atorvastatin Calcium (Lipitor) 80 mg PO QHS JAMEY Dextrose (D50w (25gm) Syringe) 50 ml IV Q30MIN PRN; Protocol PRN Reason: Hypoglycemia Sodium Chloride (Nacl 0.9% 1000 Ml) 1,000 mls @ 75 mls/hr IV DIRECT JAMEY Insulin Human Regular (Humulin R) 0 unit SUB-Q Q4HR JAMEY; Protocol Last Admin: 04/09/20 06:36 Dose: Not Given Documented by: Physical Examination - Vital Signs Vital Signs: Vital Signs Temp Pulse Resp BP Pulse Ox 98 F 74 20 174/90 97 04/08/20 18:49 04/08/20 18:49 04/08/20 18:49 04/08/20 18:49 04/08/20 18:49 Results - Laboratory Findings CBC and BMP: 04/08/20 18:48 04/09/20 05:14 Abnormal Lab Findings: Abnormal Labs 04/08/20 04/08/20 04/08/20 18:48 18:48 18:48 Hgb 11.6 L RDW 12.9 L Seg Neutrophils % 70.5 H APTT 23.2 L Sodium 133 L Carbon Dioxide 19 L BUN 33 H Creatinine 2.1 H Glucose 198 H POC Glucose 04/08/20 04/09/20 04/09/20 19:44 05:12 05:14 Hgb RDW Seg Neutrophils % APTT Sodium 133 L Carbon Dioxide BUN 29 H Creatinine 1.7 H Glucose 256 H POC Glucose 155 H 261 H 04/09/20 07:50 Hgb RDW Seg Neutrophils % APTT Sodium Carbon Dioxide BUN Creatinine Glucose POC Glucose 249 H - Diagnostic Findings Additional findings: Neurological Examination : 1. Alert oriented to place and person . 2. Cranial Nerves normal. 3. Strength in upper and lower extremity 5/5 no drift . 4. Gait not tested . MRI Brain and MRA Brain - unremarkable . Impression/PLan. 1. Possibility of TIA patient has risk factors. 2. Discussed with the patient about Management including ASA and Lipitor . 3. Patient will follow up with in office, will call him on Sunday 4. If there is a recurrance of symptoms proceed to ER . 5. Possible Needs Out patient cardiac workup . 6. Patient wants to go home, can be discharged . Dr. Terrell
[2020-04-09] MEDS: ASPIRIN 81 MG TAB CHEW PO SCH (15:15)
[2020-04-09] MEDS: amLODIPine 5 MG TAB PO SCH (15:16)
[2020-04-09] MEDS ORDERED: hydrALAZINE 20 MG/1 ML INJ IV SCH (16:00)
[2020-04-09] MEDS ORDERED: INSULIN REGULAR, HUMAN 100 UNIT/ML 3ML VIAL SUB-Q ONE (17:56)
[2020-04-09 18:15] LABS: Creatinine,Urine 32.8 mg/dL (0.1-20.0)
[2020-04-09 18:19] LABS: Protein/Creatinine Ratio,Urine 0.69
--- NOTE | 2020-04-09 19:25 | Progress Note ---
Assessment and Plan Assessment and plan: 54 year old male who developed symptom of droopin of right side of mouth, speech impairment and numbness of the left arm. Symptoms started the day before presentation . patient denied history of pain in any part of the body , shortness of breath and or fever, there is no history of nausea or vomiting and patient described the left arm feeling as heavy and weird. Cryptogenic CVA Hyperglycemia rule out diabetes Persistent slurred speech and mild encephalopathy acute metabolic History of skin mahoney on the lower extremity well-healed Hypertension Plan MRI and MRA reviewed negative plan initially was to discharge patient today the blood sugar went up to 400. Resistant to initial doses of insulin. Continue IV hydration as this is improving renal function not quite at baseline although the baseline is unknown We will check a hemoglobin A1c and start on insulin for better control of blood sugar Patient will benefit from ABRAHAM inhibitor which can be initiated outpatient for now we will use low-dose Norvasc with as needed hydralazine. Anticipate discharge in a.m. Plan of care discussed with the patient History Interval history: Patient seen and examined today resting comfortably symptoms appears to have improved although there is still mild slurred speech. Hospitalist Physical - Physical exam Narrative exam: VITAL SIGNS: Reviewed. GENERAL: The patient appears normally developed, Vital signs as documented. HEAD: No signs of head trauma. EYES: Pupils are equal. Extraocular motions intact. EARS: Hearing grossly intact. MOUTH: Oropharynx is normal. NECK: No adenopathy, no JVD. CHEST: Chest with clear breath sounds bilaterally. No wheezes, rales, or rhonchi. CARDIAC: Regular rate and rhythm. S1 and S2, without murmurs, gallops, or rubs. VASCULAR: No Edema. Peripheral pulses normal and equal in all extremities. ABDOMEN: Soft, non tender and non distended. No rebound or guarding, and no masses palpated. Bowel Sounds normal. MUSCULOSKELETAL: Good range of motion of all major joints. Extremities without clubbing, cyanosis or edema. NEUROLOGIC EXAM: Alert and oriented x 3 No focal sensory or strength deficits. Speech still with mild slurred speech and still with mild right- sided facial droop. L. Follows commands. PSYCHIATRIC: Mood normal. SKIN: detail exam as documented in skin assessment - Constitutional Vitals: Temp Pulse Resp BP Pulse Ox 98.2 F 82 18 126/71 98 04/09/20 16:55 04/09/20 16:55 04/09/20 16:55 04/09/20 16:55 04/09/20 16:55 General appearance: Present: mild distress HEART Score - HEART Score Risk factors: 1-2 risk factors Troponin: Troponin T < 0.010 ng/mL (0.00-0.029) 04/08/20 18:48 Troponin: < normal limit - Critical Actions Critical Actions: 0-3 pts:0.9-1.7%risk of adverse cardiac event.Candidate for discharge Results - Labs CBC & Chem 7: 04/08/20 18:48 04/09/20 05:14 Labs: Laboratory Last Values WBC 7.4 K/mm3 (4.5-11.0) 04/08/20 18:48 RBC 3.90 M/mm3 (3.65-5.03) 04/08/20 18:48 Hgb 11.6 gm/dl (11.8-15.2) L 04/08/20 18:48 Hct 35.5 % (35.5-45.6) 04/08/20 18:48 MCV 91 fl (84-94) 04/08/20 18:48 MCH 30 pg (28-32) 04/08/20 18:48 MCHC 33 % (32-34) 04/08/20 18:48 RDW 12.9 % (13.2-15.2) L 04/08/20 18:48 Plt Count 217 K/mm3 (140-440) 04/08/20 18:48 Lymph % (Auto) 21.3 % (13.4-35.0) 04/08/20 18:48 [place] % (Auto) 6.2 % (0.0-7.3) 04/08/20 18:48 Eos % (Auto) 1.2 % (0.0-4.3) 04/08/20 18:48 Baso % (Auto) 0.8 % (0.0-1.8) 04/08/20 18:48 Lymph # (Auto) 1.6 K/mm3 (1.2-5.4) 04/08/20 18:48 [place] # (Auto) 0.5 K/mm3 (0.0-0.8) 04/08/20 18:48 Eos # (Auto) 0.1 K/mm3 (0.0-0.4) 04/08/20 18:48 Baso # (Auto) 0.1 K/mm3 (0.0-0.1) 04/08/20 18:48 Seg Neutrophils % 70.5 % (40.0-70.0) H 04/08/20 18:48 Seg Neutrophils # 5.2 K/mm3 (1.8-7.7) 04/08/20 18:48 PT 13.5 Sec. (12.2-14.9) 04/08/20 18:48 INR 1.04 (0.87-1.13) 04/08/20 18:48 APTT 23.2 Sec. (24.2-36.6) L 04/08/20 18:48 Thrombin Time 15.3 Sec. (15.1-19.6) 04/08/20 18:48 Sodium 133 mmol/L (137-145) L 04/09/20 05:14 Potassium 4.4 mmol/L (3.6-5.0) 04/09/20 05:14 Chloride 100.9 mmol/L (98-107) 04/09/20 05:14 Carbon Dioxide 22 mmol/L (22-30) 04/09/20 05:14 Anion Gap 15 mmol/L 04/09/20 05:14 BUN 29 mg/dL (9-20) H 04/09/20 05:14 Creatinine 1.7 mg/dL (0.8-1.3) H 04/09/20 05:14 Estimated GFR 51 ml/min 04/09/20 05:14 BUN/Creatinine Ratio 17 % 04/09/20 05:14 Glucose 256 mg/dL (75-100) H 04/09/20 05:14 POC Glucose 441 mg/dL (70-105) H 04/09/20 16:52 Calcium 8.5 mg/dL (8.4-10.2) 04/09/20 05:14 Troponin T < 0.010 ng/mL (0.00-0.029) 04/08/20 18:48 Urine Creatinine 32.0 mg/dL (0.1-20.0) H 04/09/20 Unknown Urine Creatinine 32.8 mg/dL (0.1-20.0) H 04/09/20 Unknown Protein/Creatinin Ratio 0.69 04/09/20 Unknown Urine Sodium 80 mmol/L 04/09/20 Unknown Urine Urea Nitrogen 241 04/09/20 Unknown Urine Total Protein 22 mg/dL (5-11.8) H 04/09/20 Unknown Urine Opiates Screen Negative 04/08/20 19:55 Urine Methadone Screen Negative 04/08/20 19:55 Ur Barbiturates Screen Negative 04/08/20 19:55 Ur Phencyclidine Scrn Negative 04/08/20 19:55 Ur Amphetamines Screen Negative 04/08/20 19:55 U Benzodiazepines Scrn Negative 04/08/20 19:55 Urine Cocaine Screen Negative 04/08/20 19:55 U Marijuana (THC) Screen Negative 04/08/20 19:55 Drugs of Abuse Note Disclamer 04/08/20 19:55 Plasma/Serum Alcohol < 0.01 % (0-0.07) 04/08/20 19:12 - Diagnostic Impressions Diagnostic Impressions: Echocardiogram 04/09/20 06:00 Transthoracic Echocardiogram Indication: CVA BP: 153/83 HR: 63 Conclusions *Global left ventricular systolic function is normal. *The estimated ejection fraction is 55-60%. *There is no left ventricular hypertrophy. *The right ventricular global systolic function is normal. *There is trace of aortic regurgitation. *There is trace of mitral regurgitation. *There is trace tricuspid regurgitation. *The right ventricular systolic pressure is calculated at 22 mmHg. *No atrial septal defected is demonstrated by color Doppler and agitated saline contrast. Findings Left Ventricle: The left ventricular chamber size is normal. There is no left ventricular hypertrophy. Global left ventricular wall motion and contractility are within normal limits. Global left ventricular systolic function is normal. The estimated ejection fraction is 55-60%. There is an E to A reversal in the mitral valve flow pattern suggestive of diastolic dysfunction. Left Atrium: The left atrial chamber size is normal. Right Ventricle: The right ventricular cavity size is normal. The right ventricular global systolic function is normal. Right Atrium: The right atrial cavity size is normal. No atrial septal defected is demonstrated by color Doppler and agitated saline contrast. Aortic Valve: Mild aortic leaflet calcification is visualized. There is trace of aortic regurgitation. Mitral Valve: The mitral valve leaflets are mildly thickened. There is trace of mitral regurgitation. Tricuspid Valve: The tricuspid valve leaflets are normal. There is trace tricuspid regurgitation. The right ventricular systolic pressure is calculated at 22 mmHg. Pulmonic Valve: The pulmonic valve appears normal. There is trace pulmonic regurgitation. Pericardium: There is no pericardial effusion. Aorta: The aorta appears normal. Venous: The inferior vena cava appears normal in size. Contrast: Intravenous agitated saline contrast was used to assess intracardiac shunting. Measurements Chambers 2D Name Value Normal Range IVSd (2D) 0.89 cm (0.6 - 1.1) LVPWd (2D) 0.98 cm (0.6 - 1.1) LVIDd (2D) 4.65 cm (3.7 - 5.6) LVIDs (2D) 3.05 cm (2 - 3.8) LV FS (2D) 34.38 % - EF Teichholz (2D) 63.46 % - Ao root diameter (2D) 3.44 cm (2 - 3.7) Volumes/Mass Name Value Normal Range LA ESV SP 4CH (A/L) 40.21 ml - LA ESV SP 2CH (A/L) 68.2 ml - LA ESV BP (A/L) 52.5 ml - LA ESV BP (A/L) index 25.99 ml/m2 - LA ESV SP 4CH (MOD) 38.44 ml - LA ESV SP 2CH (MOD) 63.61 ml - LA ESV BP (MOD) 48.7 ml - LA ESV BP (MOD) index 24.11 ml/m2 - Diastolic/Systolic Function Name Value Normal Range MV E-wave Vmax 0.68 m/sec - MV deceleration time 253.47 msec - MV A-wave Vmax 0.78 m/sec - MV E:A ratio 0.87 ratio - Aortic Valve Name Value Normal Range AV Vmax 0.92 m/sec - AV VTI 23.71 cm - AV peak gradient 3.35 mmHg - AV mean gradient 2.12 mmHg - LVOT diameter 2.16 cm - LVOT Vmax 0.83 m/sec - LVOT VTI 20.03 cm - LVOT peak gradient 2.75 mmHg - LVOT mean gradient 1.51 mmHg - SV LVOT 73.37 ml - HERBERTH (continuity Vmax) 3.32 cm2 - HERBERTH (continuity VTI) 3.09 cm2 - AR PHT 1524.8 msec - AR peak gradient 40.08 mmHg - Ascending Ao 3.31 cm - Mitral Valve Name Value Normal Range MR Vmax 4.7 m/sec - Tricuspid Valve Name Value Normal Range TR Vmax 2.17 m/sec - TR peak gradient 19 mmHg - RAP 3 mmHg - RVSP 22 mmHg - IVC diameter 1.29 cm (1.2 - 2.3) Pulmonic Valve/Qp:Qs Name Value Normal Range PV Vmax 0.49 m/sec - PV peak gradient 0.94 mmHg - MO end-diastolic Vmax 0.7 m/sec - PV acceleration time 102.76 msec - Galvin/IV: Voiding Method Urinal IV Catheter Type [Right Peripheral IV Antecubital] Active Medications - Current Medications Current Medications: Generic Name Dose Route Start Last Admin Trade Name Freq PRN Reason Stop Dose Admin Amlodipine Besylate 2.5 mg 04/09/20 11:00 04/09/20 15:16 Amlodipine PO 2.5 mg QDAY JAMEY Administration Aspirin 81 mg 04/09/20 11:00 04/09/20 15:15 Baby Aspirin PO 81 mg QDAY JAMEY Administration Atorvastatin Calcium 80 mg 04/09/20 22:00 Lipitor PO QHS JAMEY Dextrose 50 ml 04/09/20 03:03 D50w (25gm) Syringe IV Q30MIN PRN Hypoglycemia Protocol Sodium Chloride 1,000 mls @ 75 mls/hr 04/09/20 10:30 Nacl 0.9% 1000 Ml IV DIRECT JAMEY Insulin Human Regular 0 unit 04/09/20 06:00 04/09/20 15:17 Humulin R SUB-Q 5 unit Q4HR JAMEY Administration Protocol Nutrition/Malnutrition Assess - Dietary Evaluation Nutrition/Malnutrition Findings: Nutrition Notes Start: 04/09/20 12:47 Freq: Status: Active Protocol: Document 04/09/20 12:47 AT (Rec: 04/09/20 12:51 AT [id number]) Co-Sign 04/09/20 12:47 LM Nutrition Notes 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 Per chart, pt has difficulty speaking d/t stroke. Per RN, pt completed speech eval and has been placed on a Regular diet. Nutrition Intervention Revisit per MD consult or patient Sign Off request:
[2020-04-09] MEDS: SODIUM CHLORIDE 0.9% 1000 ML 1,000 ML IV SCH (20:23)
[2020-04-09] MEDS ORDERED: INSULIN GLARGINE 100 UNITS/ML SUB-Q SCH (22:00)
[2020-04-10 06:25] LABS: Basophils % (Auto) 0.5 % (0.0-1.8); Eosinophils # (Auto) 0.1 K/mm3 (0.0-0.4); Eosinophils % (Auto) 2.6 % (0.0-4.3); Hematocrit 31.5 % (35.5-45.6); Hemoglobin 10.6 gm/dl (11.8-15.2); Lymphocytes # (Auto) 1.5 K/mm3 (1.2-5.4); Lymphocytes % (Auto) 32.4 % (13.4-35.0); Mean Corpuscular HGB Conc 34 % (32-34); Mean Corpuscular Volume 89 fl (84-94); Monocytes # (Auto) 0.3 K/mm3 (0.0-0.8); Monocytes % (Auto) 7.5 % (0.0-7.3); Platelet Count 217 K/mm3 (140-440); Red Blood Count 3.54 M/mm3 (3.65-5.03); Red Cell Distribution Width 12.7 % (13.2-15.2)
[2020-04-10 06:39] LABS: Calcium 7.9 mg/dL (8.4-10.2)
[2020-04-10] MEDS: SODIUM CHLORIDE 0.9% 1000 ML 1,000 ML IV SCH (07:27)
[2020-04-10] MEDS: amLODIPine 5 MG TAB PO SCH (09:14)
[2020-04-10] MEDS: INSULIN REGULAR, HUMAN 100 UNIT/ML 3ML VIAL SUB-Q SCH (09:15)
[2020-04-10] MEDS: ASPIRIN 81 MG TAB CHEW PO SCH (09:15)
[2020-04-10] MEDS ORDERED: INSULIN NPH/REGULAR 70/30 INJ SUB-Q SCH (10:00)
--- NOTE | 2020-04-10 10:30 | Discharge Summary ---
Providers - Providers Date of Admission: 04/08/20 22:18 Attending physician: JEF JOVEL MD 04/08/20 23:31 Physical Therapy Evaluation and Treat [CONS] Routine Comment: Reason For Exam: CVA 04/09/20 06:00 Consult to Physician [CONS] Routine Comment: Consulting Provider: EZEQUIEL PHILLIPS Physician Instructions: Reason For Exam: NALDO Speech Therapy Evaluation and Treat [CONS] Routine Reason For Exam: CVA WITH SPEECH IMPAIRMENT 04/09/20 06:27 Consult to Physician [CONS] Routine Comment: Consulting Provider: SVETLANA HASTINGS Physician Instructions: Reason For Exam: CVA [facility] Condition: St[facility] Hospital course: 54 year old male who developed symptom of droopin of right side of mouth, speech impairment and numbness of the left arm. Symptoms started the day before presentation . patient denied history of pain in any part of the body , shortness of breath and or fever, there is no history of nausea or vomiting and patient described the left arm feeling as heavy and weird. Cryptogenic CVA Hyperglycemia rule out diabetes Persistent slurred speech and mild encephalopathy acute metabolic History of skin mahoney on the lower extremity well-healed Hypertension Acute kidney injury on CKD stage III secondary to vasomotor nephropathy Plan MRI and MRA reviewed negative plan initially was to discharge patient today the blood sugar went up to 400. Resistant to initial doses of insulin. Continue IV hydration as this is improving renal function not quite at baseline although the baseline is unknown We will check a hemoglobin A1c and start on insulin for better control of blood sugar Patient will benefit from ABRAHAM inhibitor which can be initiated outpatient for now we will use low-dose Norvasc with as needed hydralazine. Anticipate discharge in a.m. Plan of care discussed with the patient 04/10 Patient seen today doing well no acute distress not informs me that he has a hi story of diabetes and is on Levemir and NovoLog at home but has not been compliant. Also informs me that he does have underlying chronic kidney disease. He was seen at [facility]. He reports no dysuria or increased urinary frequency or retention. Following discussion with him he will be discharged to follow-up with nephrology and also will renew his prescriptions for his diabetic medication and going through the diabetic complications with him and he verbalized understanding. Disposition: TO HOME OR SELFCARE Core Measure Documentation - Palliative Care Palliative Care/ Comfort Measures: Not Applicable - Core Measures Any of the following diagnoses?: stroke - Stroke Discharge Requirements Statin for LDL = or >70 mg/dl on DC: Yes Anticoag for atrial fib/atrial flutter: Not Applicable Antithrombotic for ischemic stroke: Yes Exam - Physical Exam Narrative exam: VITAL SIGNS: Reviewed. GENERAL: The patient appears normally developed, Vital signs as documented. HEAD: No signs of head trauma. EYES: Pupils are equal. Extraocular motions intact. EARS: Hearing grossly intact. MOUTH: Oropharynx is normal. NECK: No adenopathy, no JVD. CHEST: Chest with clear breath sounds bilaterally. No wheezes, rales, or rhonchi. CARDIAC: Regular rate and rhythm. S1 and S2, without murmurs, gallops, or rubs. VASCULAR: No Edema. Peripheral pulses normal and equal in all extremities. ABDOMEN: Soft, non tender and non distended. No rebound or guarding, and no masses palpated. Bowel Sounds normal. MUSCULOSKELETAL: Good range of motion of all major joints. Extremities without clubbing, cyanosis or edema. NEUROLOGIC EXAM: Alert and oriented x 3 No focal sensory or strength deficits. Speech still with mild slurred speech and still with mild right- sided facial droop. L. Follows commands. PSYCHIATRIC: Mood normal. SKIN: detail exam as documented in skin assessment - Constitutional Vitals: Temp Pulse Resp BP Pulse Ox 98.5 F 69 18 124/64 97 04/10/20 07:56 04/10/20 09:14 04/10/20 07:56 04/10/20 09:14 04/10/20 07:56 Plan Activity: advance as tolerated, fall precautions Diet: diabetic, renal Special Instructions: record daily weights, record daily BP diary, record blood sugar diary Follow up with: STEFFANIE CARABALLOSTERLING MD CHERELLE [Primary Care Provider] - 7 Days SHEMAR WONG MD [Staff Physician] - 7 Days KIM BUENO MD [Staff Physician] - 7 Days Prescriptions: Insulin Detemir [Levemir VIAL] 35 unit SQ QHS #10 ml AtorvaSTATin [Lipitor] 40 mg PO QHS #30 tablet amLODIPine 2.5 mg PO QDAY #30 tablet Aspirin [Aspirin BABY CHEW TAB] 81 mg PO QDAY #30 tab.chew
--- NOTE | 2020-04-10 11:54 | Progress Note ---
Assessment and Plan acute renal failure, likely prerenal, no baseline creatinine available CVA HTN D DM type [facility] will be followed as an outpatient renally dose meds strict I&O daily weights Harmeet daigle MD [phone] Subjective Date of service: 04/10/20 Principal diagnosis: CKD Interval history: denies acute issues, ready to be discharged Objective - Vital Signs Vital signs: Vital Signs - 12hr 04/10/20 04/10/20 04/10/20 00:00 04:28 07:56 Temperature 98.4 F 98.5 F Pulse Rate 79 71 69 Pulse Rate [ Apical] Respiratory 20 18 Rate Blood Pressure 119/71 124/64 O2 Sat by Pulse 98 97 Oximetry 04/10/20 04/10/20 09:14 10:00 Temperature Pulse Rate 69 Pulse Rate [ 86 Apical] Respiratory 18 Rate Blood Pressure 124/64 O2 Sat by Pulse 98 Oximetry - Lab 04/10/20 05:32 04/10/20 05:32 Most recent lab results Calcium 7.9 mg/dL (8.4-10.2) L 04/10/20 05:32 Phosphorus 4.20 mg/dL (2.5-4.5) 04/10/20 05:32 Urine Creatinine 32.0 mg/dL (0.1-20.0) H 04/09/20 Unknown Urine Creatinine 32.8 mg/dL (0.1-20.0) H 04/09/20 Unknown Urine Sodium 80 mmol/L 04/09/20 Unknown Urine Total Protein 22 mg/dL (5-11.8) H 04/09/20 Unknown Medications & Allergies - Medications Allergies/Adverse Reactions: Allergies No Known Allergies Allergy (Verified 04/09/20 03:04) Home Medications: Home Medications Medication Instructions Recorded Confirmed Last Taken Type Aspirin [Aspirin BABY CHEW TAB] 81 mg PO QDAY #30 tab.chew 04/09/20 Unknown Rx AtorvaSTATin [Lipitor] 40 mg PO QHS #30 tablet 04/09/20 Unknown Rx amLODIPine 2.5 mg PO QDAY #30 tablet 04/09/20 Unknown Rx Insulin Detemir [Levemir VIAL] 35 unit SQ QHS #10 ml 04/10/20 Unknown Rx Insulin Regular, Human [HumuLIN R] 0 unit SQ AC #1 vial 12/05/20 Unknown Rx Active Medications: Generic Name Dose Route Start Last Admin Trade Name Freq PRN Reason Stop Dose Admin Amlodipine Besylate 2.5 mg 04/09/20 11:00 04/10/20 09:14 Amlodipine PO 2.5 mg QDAY JAMEY Administration Aspirin 81 mg 04/09/20 11:00 04/10/20 09:15 Baby Aspirin PO 81 mg QDAY JAMEY Administration Atorvastatin Calcium 80 mg 04/09/20 22:00 04/09/20 21:38 Lipitor PO 80 mg QHS JAMEY Administration Dextrose 50 ml 04/09/20 03:03 D50w (25gm) Syringe IV Q30MIN PRN Hypoglycemia Protocol Sodium Chloride 1,000 mls @ 150 mls/hr 04/09/20 10:30 04/10/20 07:27 Nacl 0.9% 1000 Ml IV 75 mls/hr DIRECT JAMEY Administration Insulin Human Isoph/Insulin Regular 35 unit 04/10/20 10:00 04/10/20 11:37 Humulin 70/30 SUB-Q 35 unit BIDDIAB JAMEY Administration Insulin Human Regular 0 unit 04/09/20 22:00 04/10/20 09:15 Humulin R SUB-Q 4 unit ACHS JAMEY Administration Protocol
[2020-04-10 13:09] VITALS: BP 146/73
== END 2020-04-10 12:00 | disposition home or self-care (01) ==
LOC: ED 18:35 → 3A 22:18 → 4A 04-09 03:28
PROVIDERS: ADMIT Internal Medicine; ATTEND Internal Medicine
DX: I63.9 Cerebral infarction, unspecified (principal); I16.0 Hypertensive urgency; N17.9 Acute kidney failure, unspecified; N28.9 Disorder of kidney and ureter, unspecified; E11.9 Type 2 diabetes mellitus without complications; R29.704 NIHSS score 4; R42 Dizziness and giddiness; Z79.4 Long term (current) use of insulin; Z79.82 Long term (current) use of aspirin; Z79.899 Other long term (current) drug therapy
CPT/HCPCS: 36415; 70450; 70544; 70551; 76770; 80048; 80307; 82570; 82962; 83036; 84100; 84156; 84300; 84484; 84520; 85025; 85610; 85670; 85730; 92610; 93005; 93306; 93880; 96361; 96372; 96374; 97161; 99285; A9270; G0378; J0360; J7030; 80320; G0480; J1815